=== PATIENT | male | born 2000 | race Caucasian/White ===

== ENCOUNTER 2022-04-30 09:45 | Emergency (ER) | payer BC ==
[2022-04-30 09:58] VITALS: BP 119/71; PULSE 94; RESP 20; TEMP 98.2
[2022-04-30] MEDS ORDERED: levETIRAcetam 500 MG TAB PO STA (10:14)
[2022-04-30] MEDS ORDERED: LORazepam 1 MG TAB PO STA (10:15)
--- NOTE | 2022-04-30 10:17 | ED ---
Seizure HPI - General Chief Complaint: Seizure Stated Complaint: seizure Time Seen by Provider: 04/30/22 10:01 Source: patient, RN notes reviewed Mode of arrival: ambulatory Limitations: no limitations - History of Present Illness Initial Comments: 21-year-old male presents emergency Department with chief complaint for anxiety, medication refill. Patient has history of seizures states this was drinking Her ran out a few days ago feel exam is seizure because he so anxious. Patient states he has not followed up with PCP or neurology of recent. Patient denies any physical complaints though current headache no focal weakness no nausea vomiting no fevers or chills. Patient denies being suicidal homicidal patient states is just anxious - Related Data Previous Rx's Medication Instructions Recorded levETIRAcetam [Keppra] 500 mg PO Q12HR #60 tab 04/30/22 Allergies Allergy/AdvReac Type Severity Reaction Status Date / Time No Known Allergies Allergy Verified 04/30/22 09:58 Review of Systems ROS Statement: Those systems with pertinent positive or pertinent negative responses have been documented in the HPI. ROS Other: All systems not noted in ROS Statement are negative. Past Medical History Past Medical History: Seizure Disorder History of Any Multi-Drug Resistant Organisms: None Reported Past Surgical History: Orthopedic Surgery Past Psychological History: No Psychological Hx Reported Smoking Status: Current every day smoker Past Alcohol Use History: None Reported Past Drug Use History: Marijuana General Exam Limitations: no limitations General appearance: alert, in no apparent distress Head exam: Present: atraumatic, normocephalic, normal inspection Eye exam: Present: normal appearance, PERRL, EOMI. Absent: scleral icterus, conjunctival injection, periorbital swelling ENT exam: Present: normal exam, normal oropharynx, mucous membranes moist Neck exam: Present: normal inspection, full ROM. Absent: tenderness, meningismus, lymphadenopathy Respiratory exam: Present: normal lung sounds bilaterally. Absent: respiratory distress, wheezes, rales, rhonchi, stridor Cardiovascular Exam: Present: regular rate, normal rhythm, normal heart sounds. Absent: systolic murmur, diastolic murmur, rubs, gallop, clicks Course Vital Signs 04/30/22 09:55 Temperature 98.2 F Pulse Rate 94 Respiratory 20 Rate Blood Pressure 119/71 O2 Sat by Pulse 99 Oximetry Medical Decision Making - Medical Decision Making 21-year-old presented for medication refill patient's Keppra was refilled he was given initial dose here. Patient did have anxiety this is treated in the emergency department. Patient is not suicidal or homicidal patient we discharged in stable condition. Disposition Clinical Impression: Hx of seizure disorder, Anxiety, Encounter for medication refill Disposition: HOME SELF-CARE Condition: Stable Instructions (If sedation given, give patient instructions): Seizure/Epilepsy Discharge Instructions & Follow-Up Additional Instructions: Please return to the Emergency Department if symptoms worsen or any other concerns. Prescriptions: levETIRAcetam [Keppra] 500 mg PO Q12HR #60 tab Is patient prescribed a controlled substance at d/c from ED?: No Referrals: None,Stated [REFERRING] - 1-2 days Time of Disposition: 10:17
== END 2022-04-30 10:38 | disposition home or self-care (01) ==
LOC: EC 09:45
DX: R56.9 Unspecified convulsions (principal); F41.9 Anxiety disorder, unspecified; Z76.0 Encounter for issue of repeat prescription; F17.200 Nicotine dependence, unspecified, uncomplicated; F12.90 Cannabis use, unspecified, uncomplicated; Z82.0 Family history of epilepsy and other diseases of the nervous system
CPT/HCPCS: 99283

== ENCOUNTER 2022-09-04 14:30 | Emergency (ER) | payer BC ==
[2022-09-04 14:59] VITALS: TEMP 98.2
[2022-09-04] MEDS ORDERED: HYDROcodone/APAP 5-325MG 1 EACH TAB PO STA (15:47)
--- NOTE | 2022-09-04 16:20 | XR ---
EXAMINATION TYPE: XR ankle complete LT DATE OF EXAM: 09/04/2022 4:04 PM INDICATION: Patient age:Male; 22 years old; Reason for study: pain, prior surgery; COMPARISON: None TECHNIQUE: The left ankle is imaged in frontal, lateral and oblique projections. FINDINGS/IMPRESSION: Post fixation changes of the left ankle with hardware present. Hardware appears intact/ There is dege neration of the tibiotalar joint present which blurs the margins of the talar dome and the tibial nelda fond secondary to osteophytes and calcification. No acute fractures definitively visualized.
--- NOTE | 2022-09-04 18:09 | ED ---
General Adult HPI - General Chief complaint: Extremity Injury, Lower Stated complaint: L ankle injury covid? Time Seen by Provider: 09/04/22 15:40 Source: patient, RN notes reviewed, old records reviewed Mode of arrival: ambulatory Limitations: no limitations - History of Present Illness Initial comments: Patient is a 22-year-old male who presents emergency department for Covid screening test as he had recent exposure with no symptoms as well as left ankle injury. Does have a history of left ankle surgery. States over the last few days he has noticed it swelling more with mild pain. States he does not to much physical activity. But does stand all day at work. No obvious trauma. Able to ambulate. Presents for further evaluation at this time. Denies any numbness or weakness. No other acute complaints at this time. - Related Data Previous Rx's Medication Instructions Recorded levETIRAcetam [Keppra] 500 mg PO Q12HR #60 tab 04/30/22 Allergies Allergy/AdvReac Type Severity Reaction Status Date / Time No Known Allergies Allergy Verified 04/30/22 09:58 Review of Systems ROS Statement: Those systems with pertinent positive or pertinent negative responses have been documented in the HPI. Review of Systems: CONST: Denies fever EYES: Denies blurry vision ENT: Denies nasal congestion C/V: Denies Chest pain RESP: Denies shortness of breath GI: Denies abdominal pain : Denies dysuria SKIN: Denies rash. MSK: Endorses left ankle pain NEURO: Denies headache ROS Other: All systems not noted in ROS Statement are negative. Past Medical History Past Medical History: No Reported History, Seizure Disorder History of Any Multi-Drug Resistant Organisms: None Reported Past Surgical History: Orthopedic Surgery Additional Past Surgical History / Comment(s): rt ankle Past Psychological History: No Psychological Hx Reported Smoking Status: Current every day smoker Past Alcohol Use History: None Reported Past Drug Use History: Marijuana General Exam - General Exam Comments Initial Comments: General: Appears in no acute distress. HEAD: Normal with no signs of head trauma. EYES: EOMI. ENT: Hearing grossly intact. RESPIRATORY: No respiratory distress. C/V: Regular rate and rhythm. ABD: Abdomen is nondistended. EXT: Patient does have left ankle pain. No obvious deformity. Tetanus palpation over the entire left ankle. Normal range of motion. Neurovascularly intact. Mild edema. No other findings. SKIN: No rashes or lesions observed on exposed skin. NEURO: Alert and oriented. Limitations: no limitations Course Vital Signs 09/04/22 09/04/22 14:56 18:25 Temperature 98.2 F Pulse Rate 71 54 L Respiratory 20 16 Rate Blood Pressure 130/80 123/76 O2 Sat by Pulse 99 100 Oximetry Medical Decision Making - Medical Decision Making Was pt. sent in by a medical professional or institution (, TRUMAN, TREATING PLANT SUPERVISOR, urgent care, hospital, or halfway...) When possible be specific @ -No Did you speak to anyone other than the patient for history (EMS, parent, family, police, friend...)? What history was obtained from this source @ -No Did you review nursing and triage notes (agree or disagree)? Why? @ -I reviewed and agree with nursing and triage notes Were old charts reviewed (outside hosp., previous admission, EMS record, old EKG, old radiological studies, urgent care reports/EKG's, halfway records)? Report findings @ -No old charts were reviewed Differential Diagnosis (chest pain, altered mental status, abdominal pain women, abdominal pain men, vaginal bleeding, weakness, fever, dyspnea, syncope, headache, dizziness, GI bleed, back pain, seizure, CVA, palpatations, mental health, musculoskeletal)? @ -Left ankle sprain, left ankle fracture, left ankle pain. This list is not all-inclusive. EKG interpreted by me (3pts min.). @ -None done X-rays interpreted by me (1pt min.). @ -Left ankle x-ray unremarkable. Findings concerning for soft tissue edema but no acute fractures. Hardware is intact. CT interpreted by me (1pt min.). @ -None done U/S interpreted by me (1pt. min.). @ -None done What testing was considered but not performed or refused? (CT, X-rays, U/S, labs)? Why? @ -None What meds were considered but not given or refused? Why? @ -None Did you discuss the management of the patient with other professionals (professionals i.e. TRUMAN Hatch, TREATING PLANT SUPERVISOR, lab, RT, psych nurse, web content & social media manager, siphon operator, teacher, chief growth officer, case management assistant)? Give summary @ -No Was smoking cessation discussed for >3mins.? @ -No Was critical care preformed (if so, how long)? @ -No Were there social determinants of health that impacted care today? How? (Homelessness, low income, unemployed, alcoholism, drug addiction, transportation, low edu. Level, literacy, decrease access to med. care, [facility], rehab)? @ -No Was there de-escalation of care discussed even if they declined (Discuss DNR or withdrawal of care, Hospice)? DNR status @ -No What co-morbidities impacted this encounter? (DM, HTN, Smoking, COPD, CAD, Cancer, CVA, ARF, Chemo, Hep., AIDS, mental health diagnosis, sleep apnea, morbid obesity)? @ -Prior left ankle surgery Was patient admitted / discharged? Hospital course, mention meds given and route, prescriptions, significant lab abnormalities, going to OR and other pertinent info. @ -There is concern for injury of the patient's left ankle. Imaging unremarkable. He did receive analgesia medications orally. Symptoms have been present for a few days. I did discuss he should follow-up with his original surgeon which she was in agreement with. I did offer him crutches as well as a temporary splint which she declined. He did accept the crutches but wished just to have it days.. I believe this is reasonable. He will be discharged home at this time. Strict return precautions discussed. Discussed rest, icing, oral analgesia medications. Patient also asked for Covid 19 screening. Covid test is negative. Patient updated on the results. \I instructed the patient to follow up with their PCP in the next 1-3 days. I explained that the patient should return to the emergency department if they experience any worsening symptoms. Strict return precautions were discussed with the patient. The patient expressed understanding of these instructions. I answered all questions that the patient had. The patient was discharged home in good condition with their prescriptions and follow up information. Undiagnosed new problem with uncertain prognosis? @ -No Drug Therapy requiring intensive monitoring for toxicity (Heparin, Nitro, Insulin, Cardizem)? @ -No Were any procedures done? @ -No Diagnosis/symptom? @ -Left Ankle sprain/pain Acute, or Chronic, or Acute on Chronic? @ -Acute Uncomplicated (without systemic symptoms) or Complicated (systemic symptoms)? @ -Uncomplicated Side effects of treatment? @ -No Exacerbation, Progression, or Severe Exacerbation? @ -No Poses a threat to life or bodily function? How? (Chest pain, USA, CT, pneumonia, PE, COPD, DKA, ARF, appy, cholecystitis, CVA, Diverticulitis, Homicidal, Suicidal, threat to staff... and all critical care pts) @ -No Diagnosis/symptom? @ -Encounter for Covid 19 screening Acute, or Chronic, or Acute on Chronic? @ -Acute Uncomplicated (without systemic symptoms) or Complicated (systemic symptoms)? @ -Uncomplicated Side effects of treatment? @ -none Exacerbation, Progression, or Severe Exacerbation] @ -no Poses a threat to life or bodily function? @ -no - Lab Data Lab Results 09/04/22 Range/Units 15:49 Coronavirus (PCR) Not Detected (Not Detectd) Disposition Clinical Impression: Encounter for screening for COVID-19, Left ankle pain Disposition: HOME SELF-CARE Condition: Good Instructions (If sedation given, give patient instructions): Ankle Sprain (ED) Is patient prescribed a controlled substance at d/c from ED?: No Referrals: None,Stated [Primary Care Provider] - 1-2 days Time of Disposition: 17:45
[2022-09-04 18:26] VITALS: BP 123/76; PULSE 54; RESP 16
== END 2022-09-04 17:03 | disposition home or self-care (01) ==
LOC: EC 14:30
DX: Z11.52 Encounter for screening for COVID-19 (principal); M25.572 Pain in left ankle and joints of left foot; F17.200 Nicotine dependence, unspecified, uncomplicated; F12.90 Cannabis use, unspecified, uncomplicated; Z20.822 Contact with and (suspected) exposure to COVID-19
CPT/HCPCS: 87635; 99283

== ENCOUNTER 2022-09-09 14:44 | Emergency (ER) | payer BC ==
[2022-09-09 15:05] VITALS: RESP 18
--- NOTE | 2022-09-09 16:17 | ED ---
Lower Extremity Injury HPI - General Chief Complaint: Extremity Injury, Lower Stated Complaint: L ANKLE INJURY RECHECK Time Seen by Provider: 09/09/22 16:04 Source: patient Mode of arrival: ambulatory - History of Present Illness Initial Comments: This 22-year-old male presents with complaint of some left ankle pain. He states that he fractured his ankle about 3+ years ago. He has had multiple surgeries to his left ankle. He denies any recent injuries. It started hurting more so this past week. He was seen in the emergency department this past week and had x-rays done and this does show postsurgical changes and osteophytes and arthritis. No acute process was noted at that time. He states that he would like something for the pain. He was dispensed crutches. He is wearing nylon ankle wrap that he had from previous injury. He states that the pain is much worse with any attempts at ambulation. He did call his orthopedic doctor and has an appointment in approximately one week. He denies any other injuries or complaints or modifying factors. - Related Data Previous Rx's Medication Instructions Recorded levETIRAcetam [Keppra] 500 mg PO Q12HR #60 tab 04/30/22 Ibuprofen [Motrin] 800 mg PO Q8H PRN #20 tab 09/09/22 Allergies Allergy/AdvReac Type Severity Reaction Status Date / Time No Known Allergies Allergy Verified 09/09/22 15:05 Review of Systems ROS Statement: Those systems with pertinent positive or pertinent negative responses have been documented in the HPI. ROS Other: All systems not noted in ROS Statement are negative. Past Medical History Past Medical History: No Reported History, Seizure Disorder History of Any Multi-Drug Resistant Organisms: None Reported Past Surgical History: Orthopedic Surgery Additional Past Surgical History / Comment(s): rt ankle Past Psychological History: No Psychological Hx Reported Smoking Status: Current every day smoker Past Alcohol Use History: None Reported Past Drug Use History: Marijuana General Exam General appearance: alert, in no apparent distress Extremities exam: Present: normal inspection, tenderness (There is tenderness noted to the left ankle more so on the lateral aspect inferior to the lateral malleolus. There is some pain with attempts at range of motion.), normal capillary refill. Absent: pedal edema, joint swelling, calf tenderness Neurological exam: Present: alert, oriented X3. Absent: motor sensory deficit Psychiatric exam: Present: normal affect, normal mood Skin exam: Present: intact. Absent: rash Course Vital Signs 09/09/22 09/09/22 14:57 16:30 Temperature 97.9 F 97.6 F Pulse Rate 64 68 Respiratory 18 18 Rate Blood Pressure 148/84 136/82 O2 Sat by Pulse 97 98 Oximetry Medical Decision Making - Medical Decision Making The patient was seen and examined. Old records from recent visit were reviewed. He just had an x-ray recently and is not felt as though any repeat x-rays are necessary as there is been no recent injuries. It is felt as though he benefit from Motrin 800 prescription is given in this regard. He does have a walking boots from previous surgeries and he is instructed to utilize this as well. It is important for him to follow-up with his orthopedic doctor this next week and he is agreeable with this plan. Rest and elevation recommended. Return parameters are discussed. Was pt. sent in by a medical professional or institution (, PA, JUNIOR HIGH SCHOOL TEACHER, urgent care, hospital, or alf...) When possible be specific @ -No Did you speak to anyone other than the patient for history (EMS, parent, family, police, friend...)? What history was obtained from this source @ -No Did you review nursing and triage notes (agree or disagree)? Why? @ -I reviewed and agree with nursing and triage notes Were old charts reviewed (outside hosp., previous admission, EMS record, old EKG, old radiological studies, urgent care reports/EKG's, alf records)? Report findings @ -Old chart from recent ER visit are reviewed. Differential Diagnosis (chest pain, altered mental status, abdominal pain women, abdominal pain men, vaginal bleeding, weakness, fever, dyspnea, syncope, headache, dizziness, GI bleed, back pain, seizure, CVA, palpatations, mental health, musculoskeletal)? @ -Ankle arthritis, postsurgical pain, ankle sprain EKG interpreted by me (3pts min.). @ -None X-rays interpreted by me (1pt min.). @ -None done CT interpreted by me (1pt min.). @ -None done U/S interpreted by me (1pt. min.). @ -None done What testing was considered but not performed or refused? (CT, X-rays, U/S, labs)? Why? @ -None What meds were considered but not given or refused? Why? @ -None Did you discuss the management of the patient with other professionals (professionals i.e. , PA, JUNIOR HIGH SCHOOL TEACHER, lab, RT, psych nurse, older adult social work specialist, gang leader, teacher, public safety officer, caser in)? Give summary @ -No Was smoking cessation discussed for >3mins.? @ -No Was critical care preformed (if so, how long)? @ -No Were there social determinants of health that impacted care today? How? (Ho melessness, low income, unemployed, alcoholism, drug addiction, transportation, low edu. Level, literacy, decrease access to med. care, group home, rehab)? @ -No Was there de-escalation of care discussed even if they declined (Discuss DNR or withdrawal of care, Hospice)? DNR status @ -No What co-morbidities impacted this encounter? (DM, HTN, Smoking, COPD, CAD, Cancer, CVA, ARF, Chemo, Hep., AIDS, mental health diagnosis, sleep apnea, morbid obesity)? @ -None Was patient admitted / discharged? Hospital course, mention meds given and route, prescriptions, significant lab abnormalities, going to OR and other pertinent info. @ -See above Undiagnosed new problem with uncertain prognosis? @ -No Drug Therapy requiring intensive monitoring for toxicity (Heparin, Nitro, Insulin, Cardizem)? @ -No Were any procedures done? @ -No Diagnosis/symptom? @ -Ankle pain Acute, or Chronic, or Acute on Chronic? @ -Chronic Uncomplicated (without systemic symptoms) or Complicated (systemic symptoms)? @ -Uncomplicated Side effects of treatment? @ -No Exacerbation, Progression, or Severe Exacerbation? @ -No Poses a threat to life or bodily function? How? (Chest pain, [place], [place], pneumonia, PE, COPD, DKA, ARF, appy, cholecystitis, CVA, Diverticulitis, Homicidal, Suicidal, threat to staff... and all critical care pts) @ -No Disposition Clinical Impression: Ankle pain, left Disposition: HOME SELF-CARE Condition: Good Instructions (If sedation given, give patient instructions): Arthralgia (ED) Additional Instructions: Please follow up with your orthopedic surgeon as soon as possible. Please use your walking boot for additional stabilization. Prescriptions: Ibuprofen [Motrin] 800 mg PO Q8H PRN #20 tab PRN Reason: Pain Is patient prescribed a controlled substance at d/c from ED?: No Referrals: None,Stated [Primary Care Provider] - 1-2 days Time of Disposition: 16:17
[2022-09-09 16:33] VITALS: BP 136/82; PULSE 68; TEMP 97.6
== END 2022-09-09 16:51 | disposition home or self-care (01) ==
LOC: EC 14:44
DX: M25.572 Pain in left ankle and joints of left foot (principal); F17.200 Nicotine dependence, unspecified, uncomplicated; F12.90 Cannabis use, unspecified, uncomplicated
CPT/HCPCS: 99283

== ENCOUNTER 2022-10-30 08:58 | Emergency (ER) | payer BC ==
[2022-10-30 09:05] VITALS: RESP 16; TEMP 98
[2022-10-30] MEDS ORDERED: IBUPROFEN 600 MG TAB PO STA (09:18)
[2022-10-30] MEDS ORDERED: HYDROcodone/APAP 7.5-325MG 1 EACH TAB PO ONE (09:18)
--- NOTE | 2022-10-30 10:14 | XR ---
EXAMINATION TYPE: XR ankle complete LT DATE OF EXAM: 10/30/2022 COMPARISON: None HISTORY: Postop pain TECHNIQUE: 3 view left ankle FINDINGS: There is a fixation screw within the fibula. Prior hardware removal is within the distal ti haritha. Some joint space irregularity is noted at the ankle mortise. The ankle mortise positioning appea rs normal. Mild diffuse soft tissue swelling is about the ankle. There is some elevation of cortex along the lateral margin of the distal metadiaphysis medial tibia. There are some lucencies present. There is loss of the cortical margin within the ankle mortise. Ther e may be some widening of the joint space. Small joint effusion may be present on the lateral project ion. IMPRESSION: 1. Changes within the left ankle including loss of the cortex of the articular surface with some kamilla encies developing, subperiosteal elevation medial metadiaphyseal tibia suggestion of a small joint ef fusion and diffuse soft tissue swelling. Clinical consideration for infection is recommended. Conside r septic arthritis of the joint space.
--- NOTE | 2022-10-30 10:19 | XR ---
EXAMINATION TYPE: XR tibia fibula LT DATE OF EXAM: 10/30/2022 COMPARISON: Left ankle same date HISTORY: Postop pain TECHNIQUE: 2 view left tibia and fibula. FINDINGS: Hardware removal is evident. Screw remains distal fibula. Knee joint space appears unremarkable. No acute or subacute fractures are identified. Changes at the right ankle are again evident. This would include soft tissue swelling, joint space wi dening with loss of cortex and some periosteal reaction along the medial metadiaphysis of the tibia. Consider possibility of underlying fraction of the joint space. Please also see left ankle dictation same date. IMPRESSION: 1. Clinical consideration for infection at the left ankle joint space is recommended. Please also se e left ankle dictation same date.
[2022-10-30 11:37] LABS: Basophils % (A) 1 %; Eosinophils # (A) 0.1 k/uL (0-0.7); Eosinophils % (A) 2 %; HCT 38.5 % (39.0-53.0); HGB 12.8 gm/dL (13.0-17.5); Lymphocytes # (A) 1.2 k/uL (1.0-4.8); Lymphocytes % (A) 24 %; MCH 29.9 pg (25.0-35.0); MCHC 33.1 g/dL (31.0-37.0); MCV 90.3 fL (80.0-100.0); Mean Platelet Volume 7.2; Monocytes # (A) 0.2 k/uL (0-1.0); Monocytes % (A) 4 %; Neutrophils # (A) 3.5 k/uL (1.3-7.7); Neutrophils % (A) 69 %; Platelet Count 303 k/uL (150-450); RBC 4.27 m/uL (4.30-5.90); RDW 12.8 % (11.5-15.5)
--- NOTE | 2022-10-30 11:55 | US ---
EXAMINATION TYPE: US venous doppler duplex LE LT DATE OF EXAM: 10/30/2022 11:47 AM COMPARISON: NONE CLINICAL INDICATION: Male, 22 years old with history of Postop left leg pain; Left leg/ankle pain s/p left ankle surgery 3 weeks ago SIDE PERFORMED: Left TECHNIQUE: The lower extremity deep venous system is examined utilizing real time linear array sonog dajuan with graded compression, doppler sonography and color-flow sonography. VESSELS IMAGED: Common Femoral Vein Deep Femoral Vein Greater Saphenous Vein * Femoral Vein Popliteal Vein Small Saphenous Vein * Proximal Calf Veins (* superficial vessels) Left Leg: Negative for DVT IMPRESSION: 1. Left lower extremity ultrasound negative for deep venous thrombosis.
--- NOTE | 2022-10-30 11:58 | US ---
EXAMINATION TYPE: US extremity nonvasculr ltd LT DATE OF EXAM: 10/30/2022 COMPARISON: Same day Xray CLINICAL INDICATION: Male, 22 years old with history of Postop left leg/ankle pain; Left ankle pain s /p surgery 3 weeks ago. Plain film suggesting joint effusion. Left lateral and medial ankle scanned in area of pt's pain/ no abnormality could be appreciated at this time FINDINGS: 1. No significant joint effusion could be identified. Significant soft tissue abnormality is not evid ent. IMPRESSION: 1. No suspicious acute changes at the level of the ankle by ultrasound.
[2022-10-30 12:00] LABS: ALT 14 U/L (4-49); AST 22 U/L (17-59); African American GFR (CKD) >90 (>60 ml/min/1.73 sqM); Albumin 4.2 g/dL (3.5-5.0); Alkaline Phosphatase 72 U/L (38-126); Anion Gap 8 mmol/L; Blood Urea Nitrogen 15 mg/dL (9-20); C Reactive Protein 1.1 mg/dL (<1.0); Calcium 9.3 mg/dL (8.4-10.2); Carbon Dioxide 27 mmol/L (22-30); Chloride 102 mmol/L (98-107); Glucose 96 mg/dL (74-99); Non-African American GFR(CKD) >90 (>60 ml/min/1.73 sqM); Sodium 137 mmol/L (137-145); Total Bilirubin 0.6 mg/dL (0.2-1.3); Total Protein 6.5 g/dL (6.3-8.2)
--- NOTE | 2022-10-30 12:30 | ED ---
Extremity Problem HPI - General Chief complaint: Extremity Injury, Lower Stated complaint: L ankle pain Time Seen by Provider: 10/30/22 09:06 Source: patient, RN notes reviewed Mode of arrival: ambulatory Limitations: no limitations - History of Present Illness Initial comments: This is a 22-year-old male who presents to the emergency department for left ankle pain. The patient had surgery 3 weeks ago to remove hardware that had loosened in his left foot/ankle. This was done at [facility]. States that over the last week he has had increasing pain. He has not noticed more swelling, but is concerned that one of the incisions appears to have surrounding redness. Denies any fevers. He is still using crutches. He is taking ibuprofen with only minimal relief in symptoms. Denies any fevers, chills, sore throat, cough, dyspnea, chest pain, palpitations, abdominal pain, nausea, vomiting, diarrhea, back pain, or headaches. - Related Data Previous Rx's Medication Instructions Recorded levETIRAcetam [Keppra] 500 mg PO Q12HR #60 tab 04/30/22 Ibuprofen [Motrin] 800 mg PO Q8H PRN #20 tab 09/09/22 Cephalexin [Keflex] 500 mg PO Q6HR 7 Days #28 cap 10/30/22 HYDROcodone/APAP 7.5-325MG [[place] 1 tab PO Q4H PRN 3 Days #18 tab 10/30/22 7.5-325] Ketorolac [Toradol] 10 mg PO Q6HR PRN #15 tab 10/30/22 Allergies Allergy/AdvReac Type Severity Reaction Status Date / Time No Known Allergies Allergy Verified 09/09/22 15:05 Review of Systems ROS Statement: Those systems with pertinent positive or pertinent negative responses have been documented in the HPI. ROS Other: All systems not noted in ROS Statement are negative. Past Medical History Past Medical History: No Reported History, Seizure Disorder History of Any Multi-Drug Resistant Organisms: None Reported Past Surgical History: Orthopedic Surgery Additional Past Surgical History / Comment(s): lt ankle Past Psychological History: No Psychological Hx Reported Smoking Status: Current every day smoker Past Alcohol Use History: None Reported Past Drug Use History: Marijuana General Exam Limitations: no limitations General appearance: alert, in no apparent distress Head exam: Present: atraumatic, normocephalic, normal inspection Respiratory exam: Present: normal lung sounds bilaterally. Absent: respiratory distress, wheezes, rales, rhonchi, stridor Cardiovascular Exam: Present: regular rate, normal rhythm, normal heart sounds. Absent: systolic murmur, diastolic murmur, rubs, gallop, clicks Extremities exam: Present: other (Swelling and minor ecchymosis to the dorsal and medial aspect of the left foot and ankle. The incision to the dorsal aspect of the foot appears to have some surrounding erythema without any drainage. 2+ DP and PT pulses. Capillary refill less than 1 second.) Neurological exam: Present: alert, oriented X3, CN II-XII intact Psychiatric exam: Present: normal affect, normal mood Course Vital Signs 10/30/22 10/30/22 09:01 12:37 Temperature 98 F Pulse Rate 93 76 Respiratory 16 16 Rate Blood Pressure 123/77 116/68 O2 Sat by Pulse 97 97 Oximetry Medical Decision Making - Medical Decision Making This is a 22-year-old male who presents to the emergency department for left ankle pain. Was pt. sent in by a medical professional or institution? @ -No Did you speak to anyone other than the patient for history? @ -No Did you review nursing and triage notes? @ -Yes, and I agree, it is accurate with regards to the patient's symptoms. Were old charts reviewed? @ -No Differential Diagnosis? @ -Differential Postop Ankle Pain: Fracture, dislocation, contusion, septic arthritis, postoperative infection/complication, this is not meant to be an all-inclusive list. EKG interpreted by me (3pts min.)? @ -Not obtained X-rays interpreted by me (1pt min.)? @ -X-ray of the left ankle and tib-fib obtained. My interpretation identifies diffuse soft tissue swelling. CT interpreted by me (1pt min.)? @ -Not obtained U/S interpreted by me (1pt. min.)? @ -Not interpreted by me What testing was considered but not performed? (CT, X-rays, U/S, labs)? Why? @ -None What meds were considered but not given? Why? @ -None Did you discuss the management of the patient with other professionals? @ -No Did you reconcile home meds? @ -No Was smoking cessation discussed for >3mins.? @ -No Was critical care preformed (if so, how long)? @ -No Were there social determinants of health that impacted care today? How? (Homelessness, low income, unemployed, alcoholism, drug addiction, transportation, low edu. Level, literacy, decrease access to med. care, alf, rehab)? @ -No Was there de-escalation of care discussed even if they declined? (Discuss DNR or withdrawal of care, Hospice)? @ -No What co-morbidities impacted this encounter? (DM, HTN, Smoking, COPD, CAD, Cancer, CVA, Hep., AIDS, mental health diagnosis, sleep apnea, morbid obesity)? @ -None Was patient admitted / discharged? @ -Discharged. We initially obtained x-rays of the left ankle and tib-fib. This revealed diffuse soft tissue swelling and a joint effusion. They advised clinical correlation for infection or septic arthritis. We subsequently obtained blood work and a duplex and soft tissue ultrasound of the left lower extremity. Blood work in the ultrasound revealed no acute findings. Pain was well controlled with ibuprofen and [place]. Discussed with the patient that he needs to have very close follow-up with his orthopedic surgeon. He tried to call him several times today but is still waiting for a call back. Advised that he really should be seen within the next couple of days. Prescriptions for ibuprofen and [place] provided with dosing instructions reviewed. He was also given a prescription for Keflex in the event there is a developing infection, especially with mild erythema around the incision. Undiagnosed new problem with uncertain prognosis? @ -None Drug Therapy requiring intensive monitoring for toxicity (Heparin, Nitro, Insulin, Cardizem)? @ -None Were any procedures done? @ -None Diagnosis/symptom? @ -Left ankle pain Acute, or Chronic, or Acute on Chronic? @ -Acute Uncomplicated (without systemic symptoms) or Complicated (systemic symptoms)? @ -Uncomplicated Side effects of treatment? @ -None Exacerbation, Progression, or Severe Exacerbation] @ -Not applicable Poses a threat to life or bodily function? @ -No Return precautions reviewed in depth, the patient is instructed to return to the emergency department with any new, worsening, or concerning symptoms. Patient verbalized understanding. This case was discussed in detail with the attending ED physician, Dr. Rico. Presentation, findings, and treatment plan discussed in detail as well. - Lab Data Result diagrams: 10/30/22 10:27 10/30/22 10:27 Lab Results 10/30/22 10/30/22 10/30/22 Range/Units 10:27 10:27 10:27 WBC 5.0 (4.0-11.0) k/uL RBC 4.27 L (4.30-5.90) m/uL Hgb 12.8 L (13.0-17.5) gm/dL Hct 38.5 L (39.0-53.0) % MCV 90.3 (80.0-100.0) fL MCH 29.9 (25.0-35.0) pg MCHC 33.1 (31.0-37.0) g/dL RDW 12.8 (11.5-15.5) % Plt Count 303 (150-450) k/uL MPV 7.2 Neutrophils % 69 % Lymphocytes % 24 % Monocytes % 4 % Eosinophils % 2 % Basophils % 1 % Neutrophils # 3.5 (1.3-7.7) k/uL Lymphocytes # 1.2 (1.0-4.8) k/uL Monocytes # 0.2 (0-1.0) k/uL Eosinophils # 0.1 (0-0.7) k/uL Basophils # 0.0 (0-0.2) k/uL Sodium 137 (137-145) mmol/L Potassium 4.0 (3.5-5.1) mmol/L Chloride 102 (98-107) mmol/L Carbon Dioxide 27 (22-30) mmol/L Anion Gap 8 mmol/L BUN 15 (9-20) mg/dL Creatinine 0.68 (0.66-1.25) mg/dL Est GFR (CKD-EPI)AfAm >90 (>60 ml/min/1.73 sqM) Est GFR (CKD-EPI)NonAf >90 (>60 ml/min/1.73 sqM) Glucose 96 (74-99) mg/dL Plasma Lactic Acid Skip 0.6 L (0.7-2.0) mmol/L Calcium 9.3 (8.4-10.2) mg/dL Total Bilirubin 0.6 (0.2-1.3) mg/dL AST 22 (17-59) U/L ALT 14 (4-49) U/L Alkaline Phosphatase 72 (38-126) U/L C-Reactive Protein 1.1 H (<1.0) mg/dL Total Protein 6.5 (6.3-8.2) g/dL Albumin 4.2 (3.5-5.0) g/dL - Radiology Data Radiology results: report reviewed, image reviewed Disposition Clinical Impression: Postoperative pain, Left ankle pain Disposition: HOME SELF-CARE Instructions (If sedation given, give patient instructions): Swollen Joint (ED) Additional Instructions: Return to the emergency department with any new, worsening, or concerning s ymptoms. Take the antibiotic as prescribed for 7 days. You can take the Toradol up to every 6 hours as needed for pain relief. You may take this with Tylenol, but do not take any other [id number] anti-inflammatories such as ibuprofen with this. Take the [place] sparingly when your pain is the most severe, and be aware that it may be sedating. Continue trying to contact your orthopedic provider to get a follow-up appointment as soon as possible. Prescriptions: Cephalexin [Keflex] 500 mg PO Q6HR 7 Days #28 cap HYDROcodone/APAP 7.5-325MG [[place] 7.5-325] 1 tab PO Q4H PRN 3 Days #18 tab PRN Reason: Pain Ketorolac [Toradol] 10 mg PO Q6HR PRN #15 tab PRN Reason: Pain Is patient prescribed a controlled substance at d/c from ED?: Yes When asked, does pt state using other controlled substances?: No If prescribed controlled substance>3 days was MAPS reviewed?: Prescribed <3 Days Referrals: None,Stated [Primary Care Provider] - 1-2 days
[2022-10-30 12:40] VITALS: BP 116/68; PULSE 76
== END 2022-10-30 12:39 | disposition home or self-care (01) ==
LOC: EC 08:58
DX: G89.18 Other acute postprocedural pain (principal); M25.572 Pain in left ankle and joints of left foot; F17.200 Nicotine dependence, unspecified, uncomplicated; F12.90 Cannabis use, unspecified, uncomplicated; Z98.890 Other specified postprocedural states
CPT/HCPCS: 36415; 80053; 83605; 85025; 86140; 99284

== ENCOUNTER 2022-11-11 10:41 | Emergency (ER) | payer BC ==
[2022-11-11 11:04] VITALS: TEMP 98.7
[2022-11-11] MEDS ORDERED: SODIUM CHLORIDE 0.9% 1,000 ML IV ONE (11:48)
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
[2022-11-11 12:08] LABS: Basophils % (A) 0 %; Eosinophils # (A) 0.3 k/uL (0-0.7); Eosinophils % (A) 5 %; HGB 14.9 gm/dL (13.0-17.5); Lymphocytes # (A) 1.7 k/uL (1.0-4.8); Lymphocytes % (A) 27 %; MCHC 33.8 g/dL (31.0-37.0); MCV 88.8 fL (80.0-100.0); Mean Platelet Volume 7.4; Monocytes # (A) 0.3 k/uL (0-1.0); Monocytes % (A) 4 %; Neutrophils # (A) 3.9 k/uL (1.3-7.7); Neutrophils % (A) 62 %; Platelet Count 281 k/uL (150-450); RBC 4.96 m/uL (4.30-5.90); RDW 13.6 % (11.5-15.5); WBC 6.3 k/uL (4.0-11.0)
[2022-11-11 12:14] VITALS: RESP 18
[2022-11-11 12:24] LABS: Appearance,Urine Clear (Clear); Bilirubin,Urine Negative (Negative); Blood,Urine Negative (Negative); Color,Urine Yellow; Glucose,Urine (UA) Negative (Negative); Ketones,Urine Trace (Negative); Leukocyte Esterase,Urine Negative (Negative); Mucus,Urine Many /hpf; Nitrite,Urine Negative (Negative); Protein,Urine 1+ (Negative); RBC,Urine <1 /hpf (0-5); WBC,Urine 3 /hpf (0-5)
[2022-11-11 12:33] LABS: ALT 18 U/L (4-49); AST 26 U/L (17-59); African American GFR (CKD) >90 (>60 ml/min/1.73 sqM); Alkaline Phosphatase 85 U/L (38-126); Anion Gap 11 mmol/L; Blood Urea Nitrogen 17 mg/dL (9-20); Calcium 9.9 mg/dL (8.4-10.2); Carbon Dioxide 25 mmol/L (22-30); Chloride 104 mmol/L (98-107); Glucose 86 mg/dL (74-99); Non-African American GFR(CKD) >90 (>60 ml/min/1.73 sqM); Sodium 140 mmol/L (137-145); Total Bilirubin 2.1 mg/dL (0.2-1.3); Total Protein 7.7 g/dL (6.3-8.2)
--- NOTE | 2022-11-11 12:53 | CT ---
EXAMINATION TYPE: CT brain wo con DATE OF EXAM: 11/11/2022 COMPARISON: None HISTORY: AYOUB CT DLP: 1099.4 mGycm. Automated Exposure Control for Dose Reduction was Utilized. TECHNIQUE: CT scan of the head is performed without contrast. FINDINGS: There is no acute intracranial hemorrhage, mass effect, or midline shift identified. The ventricles and sulci are within normal limits in size. There are low-lying cerebellar tonsils at the level of the foramen magnum. The globes are intact and changes of mild chronic sinusitis noted. IMPRESSION: 1. No acute intracranial hemorrhage, mass effect, or midline shift is seen. 2. Low-lying cerebellar tonsils recommend correlation with MRI to assess for Chiari malformation. 3. Mild chronic sinusitis
--- NOTE | 2022-11-11 13:07 | XR ---
EXAMINATION TYPE: XR ankle complete LT DATE OF EXAM: 11/11/2022 COMPARISON: 10/30/2022 HISTORY: Ankle pain TECHNIQUE: 3 view left ankle FINDINGS: There is a screw through the medullary fibula. Ankle mortise appears somewhat irregular. Co rrelate for prior infection. This could be posttraumatic in nature. The ankle mortise however appears stable from comparison. Calcaneus appears intact. IMPRESSION: 1. No acute osseous abnormality. 2. Advanced degenerative changes within the ankle mortise, stable from comparison.
[2022-11-11 14:55] VITALS: BP 124/74; PULSE 71
== END 2022-11-11 15:20 | disposition home or self-care (01) ==
LOC: EC 10:41
DX: M25.572 Pain in left ankle and joints of left foot (principal); R51.9 Headache, unspecified; J32.9 Chronic sinusitis, unspecified; F12.90 Cannabis use, unspecified, uncomplicated; F17.290 Nicotine dependence, other tobacco product, uncomplicated; Z20.822 Contact with and (suspected) exposure to COVID-19
CPT/HCPCS: 36415; 70450; 80053; 80177; 81001; 83605; 85025; 87636; 96360; 99284